=== PATIENT | female | born 1980 | race African-American/Black ===

== ENCOUNTER 2023-10-03 19:10 | Emergency (ER) | payer OTHER ==
[2023-10-03] MEDS ORDERED: Ibuprofen 200 MG TAB ONE (21:07)
[2023-10-03] MEDS ORDERED: Acetaminophen 500 MG TAB ONE (21:07)
== END 2023-10-03 22:07 | disposition home or self-care (01) ==
LOC: CSHERS 19:10
DX: S43.402A Unspecified sprain of left shoulder joint, initial encounter (principal); S83.92XA Sprain of unspecified site of left knee, initial encounter; S20.219A Contusion of unspecified front wall of thorax, initial encounter; V89.2XXA Person injured in unspecified motor-vehicle accident, traffic, initial encounter; F17.290 Nicotine dependence, other tobacco product, uncomplicated
CPT/HCPCS: 71045; 93005